=== PATIENT | female | born 1935 | race Caucasian/White ===

== ENCOUNTER 2017-01-20 12:01 | Emergency (ER) | payer MEDICARE ==
[~2017-01-20] VITALS: Ht 157.5 cm; Wt 81.0 kg
[~2017-01-20 12:01] MED LIST: BAYER LOW81 MG OR; BIOTIN1000 MCG PO; CALCIUM + D PO; CRESTOR20 MG PO; FISH OIL1000 MG PO; FLAXSEED OIL1000 MG OR; GLUCOPHAGE1000 MG OR; LORTAB5 OR; MULTI VIT PO; NEXIUM40 M1 OR; RED YEAS1
[2017-01-20] MEDS ORDERED: AMLODIPINE5 MG PO (12:12)
[2017-01-20] MEDS ORDERED: LOSARTAN POTASS50 MG PO (12:13)
[2017-01-20] MEDS ORDERED: METFORMIN500 M2 PO (12:30)
[2017-01-20] MEDS ORDERED: PANTOPRAZOLE SO40 M1 PO (12:31)
[2017-01-20] MEDS ORDERED: BAYER ASPIRIN E81 MG PO (12:32)
[2017-01-20] MEDS ORDERED: LORTAB 5-325 MG1 TAB PO (13:48)
[2017-01-20] MEDS ORDERED: EC-NAPROSYN500 MG PO (13:49)
[2017-01-20 13:50] VITALS: BP 149/74
== END 2017-01-20 13:50 | disposition home or self-care (01) ==
LOC: ED 12:01
DX: M48.54XA Collapsed vertebra, not elsewhere classified, thoracic region, initial encounter for fracture (principal); E78.5 Hyperlipidemia, unspecified; E11.9 Type 2 diabetes mellitus without complications; Z79.84 Long term (current) use of oral hypoglycemic drugs